=== PATIENT | female | born 1940 | race Two or more races ===

== ENCOUNTER 2020-10-25 11:41 | Inpatient (IN) | payer MEDICARE, OTHER ==
[2020-10-25] VITALS: BP 107/81
[~2020-10-25] VITALS: Ht 157.5 cm; Wt 85.3 kg
--- NOTE | 2020-10-25 11:48 | NUR ---
BIB RA 100 FROM HOME, FOUND BY DAUGHTER,WEAK,UNABLE TO GET UPT FROM BED BLOOD SUGAR ABOVE 500 UPON EMS ARRIVAL, TO ER BED 7, HOOKED TO SOLUTION SALES SENIOR EXECUTIVE, BP CUFF AND POX. PATIENT ON NRB AT 15LPM O2, O2 SATURATION AT 92%. 77% RA. CHANGED TO HOSP GOWN, WARM BLANKET PROVIDED, PATIENT AAO x 3, DR AGEE AT BEDSIDE
[2020-10-25] MEDS ORDERED: BENA40TA8 PO (12:07)
[2020-10-25] MEDS ORDERED: HYDR25TA4 PO (12:07)
[2020-10-25] MEDS ORDERED: METF-440 PO (12:07)
[2020-10-25] MEDS ORDERED: ATOR40TA PO (12:07)
[2020-10-25] MEDS ORDERED: ASPI-1498 PO (12:07)
[2020-10-25 12:10] LABS: BASOPHILS % (AUTO) 0.6 % (0.0-2.0); EOSINOPHILS % (AUTO) 0.1 % (0.0-6.0); HEMATOCRIT 41 % (33-45); HEMOGLOBIN 13.1 g/dL (11.5-14.8); LYMPHOCYTES # (AUTO) 0.5 /CMM (0.8-4.8); LYMPHOCYTES % (AUTO) 6.6 % (20.0-44.0); MEAN CORPUSCULAR HGB CONC 32 g/dl (31.0-36.0); MEAN CORPUSCULAR VOLUME 97 fL (82-100); MONOCYTES # (AUTO) 0.4 /CMM (0.1-1.30); MONOCYTES % (AUTO) 5.1 % (2.0-12.0); NEUTROPHILS # (AUTO) 6.4 /CMM (1.8-8.9); NEUTROPHILS % (AUTO) 87.6 % (43.0-81.0); PLATELET COUNT (AUTO) 207 /CMM (150-450); RED BLOOD CELL COUNT(AUTO) 4.21 MIL/uL (4.0-5.2); WHITE BLOOD COUNT (AUTO) 7.3 K/uL (4.3-11.0)
[2020-10-25 12:47] LABS: ALANINE AMINOTRANSFERASE 42 U/L (12-78); ALBUMIN 3.1 g/dL (3.4-5.0); ALKALINE PHOSPHATASE 140 U/L (46-116); ASPARTATE AMINOTRANSFERASE 112 U/L (15-37); BILIRUBIN,DIRECT 0.3 mg/dL (0.0-0.2); BILIRUBIN,TOTAL 0.6 mg/dL (0.2-1.0); CARBON DIOXIDE 19 mmol/L (21-32); CHLORIDE 96 mmol/L (98-107); CREATININE 1.6 mg/dL (0.6-1.3); SODIUM SERUM 134 mmol/L (136-145); TOTAL PROTEIN, SERUM 7.9 g/dL (6.4-8.2)
[2020-10-25 12:51] LABS: GLUCOSE 533 mg/dL (74-106)
--- NOTE | 2020-10-25 12:58 | NUR ---
patient unable to provide urine sample at this time. made aware
[2020-10-25] MEDS ORDERED: IV PREMIX NS +20MEQ KCL 1,000 L IV PRN (13:00)
[2020-10-25] MEDS ORDERED: INSULIN REGULAR, HUMAN 100 UNIT in IV NS 0.9% 99 ML IV ONE ×2 (13:00)
[2020-10-25 13:07] LABS: UREA NITROGEN, BLOOD 35 mg/dL (7-18)
--- NOTE | 2020-10-25 13:15 | NUR ---
MOVE SHEET SUBMITTED AND CALLED FOR TELE
[2020-10-25] MEDS ORDERED: ASPIRIN 325 MG TABLET PO ONE (13:30)
[2020-10-25] MEDS ORDERED: CEFTRIAXONE 1GM BAG (ER ONLY) 1 GM/50 ML PIGGYBACK IV ONE (13:30)
[2020-10-25 13:47] LABS: BILIRUBIN,URINE Negative (NEGATIVE); COLOR,URINE YELLOW (YELLOW); LEUKOCYTE ESTERASE ,URINE Negative (NEGATIVE); NITRITE, URINE Negative (NEGATIVE); PROTEIN,URINE 30 mg/dl (NEGATIVE); UGLUCOSE >=1000 mg/dL (NEGATIVE)
[2020-10-25] MEDS ORDERED: CEFTRIAXONE 1GM BAG (ER ONLY) 50 ML IV ONE (13:57)
[2020-10-25] MEDS ORDERED: ASPIRIN 325 MG TABLET ONE (13:57)
[2020-10-25 13:58] LABS: RBC,URINE 0-2 /HPF (0-2); WBC,URINE 0-2 /HPF (0-3)
[2020-10-25 14:02] LABS: BACTERIA,URINE Few /HPF (None Seen); SQUAMOUS EPITHELIAL CELL,UR 0-2 /HPF (None Seen)
--- NOTE | 2020-10-25 14:43 | NUR ---
RAPID COVID SWAB DONE AND PCR SENT TO LAB.
[2020-10-25] MEDS ORDERED: HYDROCODONE/APAP 5/325MG TABLET PO PRN (15:00)
[2020-10-25] MEDS ORDERED: ONDANSETRON HCL/PF 4 MG/2 ML VIAL IVP PRN (15:00)
[2020-10-25] MEDS ORDERED: Z GUARD REMEDY 2 OZ OINT TP PRN (15:00)
[2020-10-25] MEDS ORDERED: ACETAMINOPHEN 325 MG TABLET PO PRN (15:00)
[2020-10-25] MEDS ORDERED: MAGNESIUM HYDROXIDE 30 ML UDC PO PRN (15:00)
[2020-10-25] MEDS ORDERED: INSULIN REGULAR, HUMAN 100 UNIT in IV NS 0.9% 99 ML IV PRN ×2 (15:00)
[2020-10-25] MEDS ORDERED: MAG HYDROX/AL HYDROX/SIMETH 30 ML UDC PO PRN (15:00)
[2020-10-25] MEDS: AZITHROMYCIN 500 MG in IV D5W 250 ML IV SCH (17:00)
[2020-10-25] MEDS ORDERED: DEXAMETHASONE SOD PHOSPHATE 10 MG/ML VIAL IV ONE (19:00)
--- NOTE | 2020-10-25 19:30 | NUR ---
ENDORSEMENT GIVEN TO LUCIA MEDEL RN FOR DIMITRIOS
--- NOTE | 2020-10-25 19:30 | NUR ---
REC'D REPORT FROM ABEBE KWON. PT RESTING COMFORTABLY IN BED. AAOX3, CAMBODIAN SPEAKING. O2 SAT 83% ON 15L NONREBREATHER. STILL ON CONTINOUS STOCK PLAN ADMINISTRATOR AND PULSE OX. WILL CONTINUE TO MONITOR
[2020-10-25] MEDS ORDERED: DEXAMETHASONE SOD PHOSPHATE 10 MG/ML VIAL ONE (19:36)
[2020-10-25 20:29] LABS: CREATININE, URINE 133.9 MG/DL (30.0-125.0); URINE TOTAL PROTEIN 60.7 mg/dL (0-11.9)
--- NOTE | 2020-10-25 20:50 | NUR ---
RT AT BEDSIDE
[2020-10-25] MEDS ORDERED: POTASSIUM CL. PREMIX PERIPHER. 50 ML IV PRN ×2 (21:00)
[2020-10-25] MEDS ORDERED: ENOXAPARIN SODIUM 40 MG/0.4 ML DISP.SYRIN SQ SCH (21:00)
--- NOTE | 2020-10-25 21:06 | NUR ---
LAB CALLED REGARDING INVESTIGATIVE PAPERWORK FOR CONVALESCENT PLASMA TRANSFUSION.
--- NOTE | 2020-10-25 21:16 | NUR ---
Amaya jonas in [facility] - 10/25/20 at 2205 by QUIQUE REPORT GIVEN TO ABEBE BROWNLEE FOR DIMITRIOS
--- NOTE | 2020-10-25 21:16 | NUR ---
REPORT GIVEN TO ABEBE BROWNLEE FOR DIMITRIOS
[2020-10-25 22:00] VITALS: BP 115/79
--- NOTE | 2020-10-25 22:00 | NUR ---
RECEIVED PATIENT FROM SUPERVISOR CASE LOADING. PATIENT SHOWING NO SIGNS OF ANY DISTRESS. ALERT X3. PATIENT ON NRB WITH 15L SATURATING AT 85%. PATIENT HAS ALMANZA IN PLACE. RAC AND LAC #18 BOTH PATENT AND FLUSHING. ON THE MONITOR SHOWING SINUS WITH HR OF 75. BP WNL.
--- NOTE | 2020-10-25 22:04 | NUR ---
PT TRANSFERRED TO ICU PER ACLS PROTOCOL
--- NOTE | 2020-10-25 22:04 | NUR ---
Amaya jonas in ED - 10/25/20 at 2213 by KELLEY PT TRANSFERRED TO ICU 252 PER ACLS PROTOCOL IN STABLE CONDITION
[2020-10-25 22:39] LABS: CALCIUM, SERUM 8.7 mg/dL (8.5-10.1); CARBON DIOXIDE 25 mmol/L (21-32); CHLORIDE 105 mmol/L (98-107); CREATININE 1.1 mg/dL (0.6-1.3); GLUCOSE 250 mg/dL (74-106); POTASSIUM 3.9 mmol/L (3.5-5.1); SODIUM SERUM 141 mmol/L (136-145); UREA NITROGEN, BLOOD 29 mg/dL (7-18)
[2020-10-25 22:40] LABS: ABG BASE EXCESS -5.1 mmol/L; ABG OXYGEN SATURATION 88.4 % (92.0-98.5); ABG PCO2 32.2 mmHg (35.0-45.0); ABG PH 7.388 (7.350-7.450); ABG PO2 55.3 mmHg (75.0-100.0); AaDO2 625.5 mmHg; COHb 1.1 % (0.5-1.5); MetHb 0.3 % (0.0-1.5); O2Hb 87.2 % (94.0-97.0); SITE, ABG Left Radial; VENT MODE, BG 5 LNC + 15 LNRB
[2020-10-25] MEDS: IV D5/0.45 NACL 1,000 ML IV PRN ×2 (22:42→23:00)
[2020-10-25 23:00] VITALS: BP 127/65
[2020-10-25] MEDS: BLOOD SUGAR DIAGNOSTIC 1 EACH STRIP IN SCH (23:06)
[2020-10-26] VITALS (24 sets, daily range): BP systolic 93–153; BP diastolic 37–85
--- NOTE | 2020-10-26 00:15 | NUR ---
ROBERTO DRAWN, INFORMED HEALTHCARE SCIENCE SPECIALIST OF RESULTS WITH NO ORDERS GIVEN,
[2020-10-26] MEDS: BLOOD SUGAR DIAGNOSTIC 1 EACH STRIP IN SCH ×10 (00:37→21:06)
--- NOTE | 2020-10-26 03:30 | NUR ---
PATIENT CONTINUE TO SATURATE IN THE LOW 80%'S. ORDER FROM DIRECTOR PRODUCT SAFETY MD TO START PATIENT ON HIGH FLOW.
[2020-10-26 04:50] LABS: CALCIUM, SERUM 8.6 mg/dL (8.5-10.1); CARBON DIOXIDE 26 mmol/L (21-32); CHLORIDE 105 mmol/L (98-107); CREATININE 0.8 mg/dL (0.6-1.3); GLUCOSE 168 mg/dL (74-106); SODIUM SERUM 139 mmol/L (136-145); UREA NITROGEN, BLOOD 24 mg/dL (7-18)
[2020-10-26 04:58] LABS: CREATINE KINASE, TOTAL 377 U/L (26-192)
[2020-10-26 05:04] LABS: ALANINE AMINOTRANSFERASE 53 U/L (12-78); ALBUMIN 2.9 g/dL (3.4-5.0); ALKALINE PHOSPHATASE 142 U/L (46-116); ASPARTATE AMINOTRANSFERASE 142 U/L (15-37); B-TYPE NATRIURETIC PEPTIDE 4734 PG/ML (0-125); BILIRUBIN,TOTAL 0.3 mg/dL (0.2-1.0); MAGNESIUM 2.1 mg/dL (1.8-2.4); PHOSPHORUS 1.6 mg/dL (2.5-4.9); TOTAL PROTEIN, SERUM 7.5 g/dL (6.4-8.2)
[2020-10-26] MEDS ORDERED: DEXTROSE 50%-WATER 50 ML DISP.SYRIN IV PRN (05:30)
[2020-10-26 06:59] LABS: FERRITIN 1928 ng/mL (8-388)
--- NOTE | 2020-10-26 07:49 | NUR ---
horticultural nursery assistant note patient in bed alert oriented on high flow of o2 and nonrebreather mask ,saturation 87% on tele monitor sr hr 74 , with Gupta cath to gravity with yellow color urine, lac AND RT AC HL INTACT ON IVF ORDERED RT AT BEDSIDE , BED IN LOWER AND LOCKED POSITION PATIENT IS VERY RESTLESS AND TRYING TO REMOVE ALL LINE AND O2 AT RISK FOR DESATURATION DR MAKI NOTIFIED TO PLACE SOFT RESTRAIN , WILL MONITOR
--- NOTE | 2020-10-26 08:01 | NUR ---
WOUND CARE CONSULT: REVIEWED CHART AND NURSING DOCUMENTATION, SPOKE WITH RN. PT IS VERY RESTLESS PER NURSING STAFF. RECOMMENDATIONS MADE FOR SKIN PROTECTION. DISCUSSED WITH NURSING STAFF. PT IS ON MIGUEL ISOFLEX LOW AIRLOSS BED. MD IN AGREEMENT WITH PLAN OF CARE.
[2020-10-26] MEDS ORDERED: D5 IV ONE (08:19)
[2020-10-26] MEDS ORDERED: [UNRECOGNIZED DRUG - OTHER] IV ONE (08:19)
[2020-10-26] MEDS ORDERED: KCL IV ONE (08:19)
[2020-10-26] MEDS: DEXAMETHASONE SOD PHOSPHATE 10 MG/ML VIAL IV SCH (08:46)
[2020-10-26] MEDS: ASPIRIN EC 81 MG TABLET.DR PO SCH (08:46)
[2020-10-26] MEDS: ATORVASTATIN 40 MG TABLET PO SCH (08:46)
[2020-10-26] MEDS: IV D5/0.45 NACL 1,000 ML IV PRN (08:47)
[2020-10-26] MEDS: INSULIN REGULAR, HUMAN 100 UNIT/ML 3 ML VIAL SQ PRN ×4 (09:03→21:07)
[2020-10-26 09:25] LABS: ABG BASE EXCESS -5.4 mmol/L; ABG OXYGEN SATURATION 81.4 % (92.0-98.5); ABG PCO2 34.5 mmHg (35.0-45.0); ABG PH 7.364 (7.350-7.450); ABG PO2 46.2 mmHg (75.0-100.0); AaDO2 632.3 mmHg; COHb 0.6 % (0.5-1.5); MetHb 0.3 % (0.0-1.5); O2Hb 80.7 % (94.0-97.0); SITE, ABG Right Radial; VENT MODE, BG HFNC 60L 100% +NRB
[2020-10-26] MEDS: ENOXAPARIN SODIUM 80 MG/0.8 ML DISP.SYRIN SQ SCH ×2 (09:39→21:10)
[2020-10-26 10:12] LABS: CALCIUM, SERUM 8.5 mg/dL (8.5-10.1); CREATININE 0.8 mg/dL (0.6-1.3); POTASSIUM 4.1 mmol/L (3.5-5.1)
--- NOTE | 2020-10-26 10:21 | NUR ---
arboriculturist note dr mac at bedside aware that o2 saturation 85-87%, keep above 84 encouraged to stay on side,will cont to monitor, chest x ray done Addendum: 10/26/20 at 1023 by NIKIA BOGGS RN abg done dr mac aware of result
[2020-10-26] MEDS: IV NS 0.9% 1,000 ML IV PRN (10:42)
--- NOTE | 2020-10-26 10:44 | NUR ---
SUPERVISOR STRIPPING NOTE PER DR ANSLEY JOHN OK TO STOP D51\2 NS AND START NS AT 125 ML PER HOUR BLOOD SUGAR 339 MG\DL
[2020-10-26] MEDS ORDERED: Sodium Phosphate 15 MMOL in IV NS 0.9% 245 ML IV SCH (11:00)
[2020-10-26 11:13] LABS: BASOPHILS % (AUTO) 0.2 % (0.0-2.0); EOSINOPHILS % (AUTO) 0.5 % (0.0-6.0); HEMATOCRIT 39 % (33-45); HEMOGLOBIN 12.8 g/dL (11.5-14.8); LYMPHOCYTES # (AUTO) 0.7 /CMM (0.8-4.8); LYMPHOCYTES % (AUTO) 6.1 % (20.0-44.0); MEAN CORPUSCULAR HGB CONC 33 g/dl (31.0-36.0); MEAN CORPUSCULAR VOLUME 93 fL (82-100); MONOCYTES # (AUTO) 0.3 /CMM (0.1-1.30); MONOCYTES % (AUTO) 3.1 % (2.0-12.0); NEUTROPHILS # (AUTO) 9.7 /CMM (1.8-8.9); NEUTROPHILS % (AUTO) 90.1 % (43.0-81.0); PLATELET COUNT (AUTO) 207 /CMM (150-450); RED BLOOD CELL COUNT(AUTO) 4.21 MIL/uL (4.0-5.2); WHITE BLOOD COUNT (AUTO) 10.7 K/uL (4.3-11.0)
[2020-10-26] MEDS: CEFTRIAXONE 1 G in IV D5W 50 ML IV SCH (13:55)
--- NOTE | 2020-10-26 15:28 | NUR ---
GERIATRIC NURSE PRACTITIONER NOTE CONVALESCED PLASMA START TO TRANSFUSED ORDERED PER DR CORTEZ ONLY ONE INIT, WILL F\U, MID LINE INSERTED ORDERED ON RT UPPER ARM
[2020-10-26] MEDS: AZITHROMYCIN 500 MG in IV D5W 250 ML IV SCH (16:43)
[2020-10-26 16:49] LABS: CALCIUM, SERUM 8.5 mg/dL (8.5-10.1); CREATININE 0.8 mg/dL (0.6-1.3); POTASSIUM 3.7 mmol/L (3.5-5.1)
[2020-10-26] MEDS ORDERED: REMDESIVIR (CHARGED) 200 MG, *LOADING DOSE 1 EA in IV NS 0.9% 210 ML IV ONE (18:00)
--- NOTE | 2020-10-26 18:13 | NUR ---
ARMAMENT REPAIRER NOTE ON HIGH FLOW OF O2 AND NONREABRETHER MASK ,SATURATION 88-90% DR CORTEZ AWARE OF SATURATION
--- NOTE | 2020-10-26 20:00 | NUR ---
TRUCK WASHER NOTES PATIENT NOTED TO REMOVE NRM DESPITE FREQUENT PATIENT TEACHING TO KEEP MASK ON. PATIENT WENT INTO DISTRESS, HR UP TO 160s, DESAT TO 70s. NRM IMMEDIATELY PLACED BACK ON PATIENT, REPOSITIONED FOR COMFORT, HR NOTED TO DROP BACK DOWN TO 80s, SINUS RHYTHM. WILL CONTINUE TO MONITOR PATIENT
[2020-10-26] MEDS ORDERED: INSULIN REGULAR, HUMAN 100 UNIT/ML 3 ML VIAL SQ ONE (21:00)
[2020-10-26] MEDS ORDERED: TOCILIZUMAB 400 MG in IV NS 0.9% 80 ML IV ONE (21:00)
--- NOTE | 2020-10-26 21:00 | NUR ---
ASSEMBLER AND TESTER ELECTRONICS NOTES BLOOD SUGAR 429. PER INSULIN SLIDING SCALE, 10 UNITS INSULIN SQ AND NOTIFY MD. NICO KEVIN COLOR REPAIRER NOTIFIED, WITH ORDER TO GIVE ADDITIONAL 5 UNITS INSULIN SQ, TOTAL OF 15UNITS FOR BLOOD SUGAR 429
[2020-10-27] VITALS (24 sets, daily range): BP systolic 68–162; BP diastolic 35–88
[2020-10-27] MEDS: IV NS 0.9% 1,000 ML IV PRN (02:37)
[2020-10-27] MEDS: BLOOD SUGAR DIAGNOSTIC 1 EACH STRIP IN SCH ×6 (02:38→21:57)
[2020-10-27] MEDS: INSULIN REGULAR, HUMAN 100 UNIT/ML 3 ML VIAL SQ PRN ×6 (02:50→21:56)
[2020-10-27 04:33] LABS: BASOPHILS % (AUTO) 0.1 % (0.0-2.0); HEMATOCRIT 36 % (33-45); HEMOGLOBIN 11.5 g/dL (11.5-14.8); LYMPHOCYTES # (AUTO) 0.7 /CMM (0.8-4.8); LYMPHOCYTES % (AUTO) 6.6 % (20.0-44.0); MEAN CORPUSCULAR HGB CONC 32 g/dl (31.0-36.0); MEAN CORPUSCULAR VOLUME 93 fL (82-100); MONOCYTES # (AUTO) 0.6 /CMM (0.1-1.30); MONOCYTES % (AUTO) 5.2 % (2.0-12.0); NEUTROPHILS # (AUTO) 9.9 /CMM (1.8-8.9); NEUTROPHILS % (AUTO) 88.1 % (43.0-81.0); PLATELET COUNT (AUTO) 249 /CMM (150-450); RED BLOOD CELL COUNT(AUTO) 3.83 MIL/uL (4.0-5.2); WHITE BLOOD COUNT (AUTO) 11.2 K/uL (4.3-11.0)
[2020-10-27 04:45] LABS: ALBUMIN 2.8 g/dL (3.4-5.0); BILIRUBIN,DIRECT 0.2 mg/dL (0.0-0.2); BILIRUBIN,TOTAL 0.4 mg/dL (0.2-1.0); CALCIUM, SERUM 8.5 mg/dL (8.5-10.1); CREATININE 0.8 mg/dL (0.6-1.3); MAGNESIUM 1.9 mg/dL (1.8-2.4); PHOSPHORUS 1.8 mg/dL (2.5-4.9); TOTAL PROTEIN, SERUM 7.3 g/dL (6.4-8.2)
--- NOTE | 2020-10-27 06:00 | NUR ---
PRE CODER NOTES PATIENT KEPT COMFORTABLE DURING SHIFT ,MINIMAL EPISODES OF DESATURATION. TAPE EFFECTIVE IN KEEPING NRM ON PATIENT'S FACE
--- NOTE | 2020-10-27 07:30 | NUR ---
RN OPENING NOTE Received patient In bed, A/Ox4, on non-rebreather and high flow mask, on max settings, tolerating well, SPO2 is 88-94%. Encouraging to breath calm and relaxed, denies pain, skin is intact, ambulatory in general. Tele-monitor is SR 75-80, cardiac diet noted, Left and Right AC IV line present, intact and patent, R UA midline present. Patient is isolated for COVID-19. Safety measures in place, bed is locked, in lowest position, HOB elevated, will cont to monitor closely
[2020-10-27 08:10] LABS: PTH, INTACT 74 pg/mL (15-65)
--- NOTE | 2020-10-27 08:30 | NUR ---
Gupta cath draining Bright red urine by gravity, will inform hospitalist
[2020-10-27] MEDS: ENOXAPARIN SODIUM 80 MG/0.8 ML DISP.SYRIN SQ SCH ×2 (09:00→21:55)
[2020-10-27] MEDS: ASPIRIN EC 81 MG TABLET.DR PO SCH (09:00)
[2020-10-27] MEDS: ATORVASTATIN 40 MG TABLET PO SCH (09:04)
[2020-10-27] MEDS: DEXAMETHASONE SOD PHOSPHATE 10 MG/ML VIAL IV SCH (09:04)
[2020-10-27] MEDS: FUROSEMIDE 40 MG/4 ML VIAL IV SCH ×3 (10:26→16:35)
[2020-10-27] MEDS: K PHOS NEUTRAL 250 MG TABLET PO SCH ×2 (13:00→16:35)
--- NOTE | 2020-10-27 14:00 | NUR ---
provided bed bath for patient, gerri mosley
[2020-10-27] MEDS: CEFTRIAXONE 1 G in IV D5W 50 ML IV SCH (15:30)
[2020-10-27] MEDS: AZITHROMYCIN 500 MG in IV D5W 250 ML IV SCH (16:05)
[2020-10-27 16:07] LABS: *SPE A/G RATIO 0.7 (0.7-1.7); *SPE ALBUMIN 2.9 g/dL (2.9-4.4); *SPE ALPHA-1-GLOBULIN 0.4 g/dL (0.0-0.4); *SPE ALPHA-2-GLOBULIN 1.1 g/dL (0.4-1.0); *SPE GLOBULIN, TOTAL 3.9 g/dL (2.2-3.9); *SPE M-SPIKE Not Observed g/dL (Not Observed); *SPEGAMMA GLOBULIN 1.4 g/dL (0.4-1.8)
[2020-10-27] MEDS: REMDESIVIR (CHARGED) 100 MG in IV NS 0.9% 230 ML IV SCH (18:02)
[2020-10-27 18:35] LABS: URINE SODIUM, RANDOM 141 mmol/l (40-220); URINE TOTAL PROTEIN 11.4 mg/dL (0-11.9)
[2020-10-27 18:44] LABS: BILIRUBIN,URINE NEGATIVE (NEGATIVE); COLOR,URINE YELLOW (YELLOW); LEUKOCYTE ESTERASE ,URINE NEGATIVE (NEGATIVE); NITRITE, URINE NEGATIVE (NEGATIVE); PROTEIN,URINE NEGATIVE (NEGATIVE); UGLUCOSE NEGATIVE (NEGATIVE); UROBILINOGEN,URINE 0.2 EU/dL (0.2)
[2020-10-27 18:50] LABS: CREATININE, URINE < 5.0 MG/DL (30.0-125.0)
[2020-10-27 18:52] LABS: BACTERIA,URINE Few /HPF (None Seen); EOSINOPHIL,URINE None Seen; RBC,URINE 21-50 /HPF (0-2); SQUAMOUS EPITHELIAL CELL,UR Few /HPF (None Seen); WBC,URINE 0-2 /HPF (0-3)
--- NOTE | 2020-10-27 19:22 | NUR ---
Rn closing notes Patient remains in bed, tolerating settings well, no acute distress or complain on pain during shift comfort needs provided, medications given, safety measures implemented, bed in lowest position, HOB elevated, call light in reach, will endorse to PM shift RN for DIMITRIOS
--- NOTE | 2020-10-27 19:30 | NUR ---
REPORT CLERK INITIAL NOTES RECEIVED PATIENT IN BED, AWAKE, A/O X3, IRAQI SPEAKING, ABLE TO VERBALIZE NEEDS. SR ON MONITOR. ON HI FLOW NC 60L 100% SPO2, SPO2 MID 80s. ALMANZA PATENT AND INTACT, DRAINING PINK URINE VIA GRAVITY. CORINNE MIDLINE PATENT AND INTACT, NS @ TKO BED IN LOWEST NAD LOCKED POSITION, ISOLATION PRECAUTIONS FOR COVID-19 OBSERVED. WILL MONITOR
--- NOTE | 2020-10-27 21:30 | NUR ---
*late entry TECHNICIAN TELECOMMUNICATION SYSTEMS NOTES RN ASSISTED PATIENT WITH VIDEOCHAT CALL WITH PATIENT'S DAUGHTER KWADWO, QUESTIONS ANSWERED ABLE.
--- NOTE | 2020-10-27 22:00 | NUR ---
TRUCKER HAND NOTES PATIENT NOTED WITH BM, LOOSE, LEMONS/BLACK IN COLOR. TOLERATED BED BATH WELL
[2020-10-28] VITALS (37 sets, daily range): BP systolic 62–172; BP diastolic 41–89
[2020-10-28] MEDS: BLOOD SUGAR DIAGNOSTIC 1 EACH STRIP IN SCH ×6 (00:54→20:58)
[2020-10-28] MEDS: INSULIN REGULAR, HUMAN 100 UNIT/ML 3 ML VIAL SQ PRN ×6 (00:56→21:02)
[2020-10-28 04:44] LABS: BASOPHILS % (AUTO) 0.1 % (0.0-2.0); EOSINOPHILS % (AUTO) 0.1 % (0.0-6.0); HEMATOCRIT 37 % (33-45); LYMPHOCYTES # (AUTO) 0.5 /CMM (0.8-4.8); LYMPHOCYTES % (AUTO) 5.4 % (20.0-44.0); MEAN CORPUSCULAR HGB CONC 33 g/dl (31.0-36.0); MEAN CORPUSCULAR VOLUME 93 fL (82-100); MONOCYTES # (AUTO) 0.6 /CMM (0.1-1.30); MONOCYTES % (AUTO) 5.9 % (2.0-12.0); NEUTROPHILS # (AUTO) 8.7 /CMM (1.8-8.9); NEUTROPHILS % (AUTO) 88.5 % (43.0-81.0); PLATELET COUNT (AUTO) 256 /CMM (150-450); RED BLOOD CELL COUNT(AUTO) 3.95 MIL/uL (4.0-5.2); WHITE BLOOD COUNT (AUTO) 9.9 K/uL (4.3-11.0)
[2020-10-28 04:56] LABS: ALANINE AMINOTRANSFERASE 61 U/L (12-78); ALBUMIN 2.8 g/dL (3.4-5.0); ALKALINE PHOSPHATASE 196 U/L (46-116); ASPARTATE AMINOTRANSFERASE 105 U/L (15-37); BILIRUBIN,TOTAL 0.5 mg/dL (0.2-1.0); CALCIUM, SERUM 8.4 mg/dL (8.5-10.1); CARBON DIOXIDE 30 mmol/L (21-32); CHLORIDE 105 mmol/L (98-107); CREATININE 0.9 mg/dL (0.6-1.3); GLUCOSE 192 mg/dL (74-106); MAGNESIUM 1.4 mg/dL (1.8-2.4); PHOSPHORUS 2.8 mg/dL (2.5-4.9); POTASSIUM 2.9 mmol/L (3.5-5.1); SODIUM SERUM 145 mmol/L (136-145); TOTAL PROTEIN, SERUM 7.1 g/dL (6.4-8.2); UREA NITROGEN, BLOOD 20 mg/dL (7-18)
--- NOTE | 2020-10-28 07:30 | NUR ---
RN OPENING NOTES RECEIVED PATIENT IN BED, AWAKE, A/O X3, CROATIAN SPEAKING, ABLE TO VERBALIZE NEEDS. SR ON MONITOR. ON HI FLOW NC 60L 100% SPO2, SPO2 MID 80s. ALMANZA PATENT AND INTACT, URINE VIA GRAVITY. CORINNE MIDLINE PATENT AND INTACT, NS @ TKO .SAFETY MEASUREMENTS ARE IMPLEMENTED PER HOSPITAL PROTOCOL. BED IN LOWEST,LOCKED POSITION, AND RAILS ARE UP X2. ISOLATION PRECAUTIONS FOR COVID-19 OBSERVED. WILL CONTUNIE TO MONITOR
[2020-10-28] MEDS: Magnesium 1GM/D5W 100ML PREMIX 100 ML IV SCH ×2 (07:51→08:21)
[2020-10-28] MEDS: POTASSIUM CHLORIDE 20 MEQ TAB.PRT.SR PO SCH ×5 (07:51→11:11)
[2020-10-28] MEDS: DEXAMETHASONE SOD PHOSPHATE 10 MG/ML VIAL IV SCH (08:22)
[2020-10-28] MEDS: ASPIRIN EC 81 MG TABLET.DR PO SCH (08:23)
[2020-10-28] MEDS: ATORVASTATIN 40 MG TABLET PO SCH (08:23)
[2020-10-28] MEDS: ENOXAPARIN SODIUM 80 MG/0.8 ML DISP.SYRIN SQ SCH ×2 (08:28→21:02)
[2020-10-28 10:55] LABS: ABG BASE EXCESS 4.3 mmol/L; ABG OXYGEN SATURATION 78.7 % (92.0-98.5); ABG PCO2 40.9 mmHg (35.0-45.0); ABG PH 7.461 (7.350-7.450); ABG PO2 41.9 mmHg (75.0-100.0); AaDO2 630.2 mmHg; COHb 0.7 % (0.5-1.5); MetHb 0.3 % (0.0-1.5); O2Hb 77.9 % (94.0-97.0); SITE, ABG Right Radial; VENT MODE, BG HIGH FLOW 60 L / 100% FIO
--- NOTE | 2020-10-28 12:25 | NUR ---
PT INTUBATED BY ANESTHESIOLOGIST PER DR. CORTEZ DUE TO LOW PAO2 AND INCREASED WORK OF BREATHING. INTUBATED WITH 7.5 ET TUBE SECURED @ 23 CM CENTER OF THE LIPS. CO2 DETECTOR CHANGED TO YELLOW COLOR WITH CLEAR BREATH SOUNDS BILATERAL ON POST INTUBATION. VENT SETTINGS BELOW ORDER: AC 24 VT 450 ML FIO2 100% PEEP +5 VENT PLUGGED INTO RED OUTLET WITH ALARMS ON AND FUNCTIONING. THOMASUBAG @ BEDSIDE. Addendum: 10/28/20 at 1242 by SANAZ PHILLIPS RT Amended: Links added.
--- NOTE | 2020-10-28 12:25 | NUR ---
RN NOTES PT GOT INTUBATED
--- NOTE | 2020-10-28 12:30 | NUR ---
RN NOTES PT INTUBATED BY ANESTHESIOLOGIST PER DR. CORTEZ DUE TO LOW PAO2 AND INCREASED WORK OF BREATHING. INTUBATED WITH 7.5 ET TUBE SECURED @ 23 CM CENTER OF THE LIPS. CO2 DETECTOR CHANGED TO YELLOW COLOR WITH CLEAR BREATH SOUNDS BILATERAL ON POST INTUBATION. VENT SETTINGS BELOW ORDER: AC 24
--- NOTE | 2020-10-28 12:35 | NUR ---
RN NOTES ORDER STAT X RAY FOR TUBE LOC
--- NOTE | 2020-10-28 12:45 | NUR ---
RN NOTES CHESR X RAY TOO DEEP INTUBATION PULLED OUT 3 CM NOW LIP IS 20CM
[2020-10-28] MEDS: FUROSEMIDE 40 MG/4 ML VIAL IV SCH ×3 (12:46→20:29)
--- NOTE | 2020-10-28 12:52 | NUR ---
RN NOTES STARTTED PROPOFOL AT 5 MCG/HR AND PUT MITTENTS RESTRAINS DUE TO INTUBATION
--- NOTE | 2020-10-28 13:11 | NUR ---
et tube adjusted from 23 cm to 20 cm beckie (pulled out) per dr. mac. Addendum: 10/28/20 at 1312 by SANAZ PHILLIPS RT Amended: Links added.
--- NOTE | 2020-10-28 13:34 | NUR ---
RN NOTES DR LILLY STATED THE TUBE IS IN PLACE
[2020-10-28] MEDS: CEFTRIAXONE 1 G in IV D5W 50 ML IV SCH (14:50)
[2020-10-28 15:23] LABS: ABG BASE EXCESS 1.2 mmol/L; ABG OXYGEN SATURATION 81.5 % (92.0-98.5); ABG PH 7.402 (7.350-7.450); ABG PO2 47.1 mmHg (75.0-100.0); AaDO2 622.9 mmHg; COHb 0.5 % (0.5-1.5); MetHb 0.1 % (0.0-1.5); PEEP,BG 5 cm H2O; SITE, ABG Right Radial; VT, ABG 450 mL
--- NOTE | 2020-10-28 15:29 | NUR ---
+[address] mac Addendum: 10/28/20 at 1530 by SANAZ PHILLIPS RT Amended: Links added.
--- NOTE | 2020-10-28 15:30 | NUR ---
RN NOTES PEEP CHANGED FROM 5 TO 10
[2020-10-28] MEDS: PROPOFOL 100 ML IV PRN ×2 (16:17→22:37)
[2020-10-28] MEDS: AZITHROMYCIN 500 MG in IV D5W 250 ML IV SCH (16:19)
[2020-10-28] MEDS: REMDESIVIR (CHARGED) 100 MG in IV NS 0.9% 230 ML IV SCH (18:21)
--- NOTE | 2020-10-28 18:33 | NUR ---
RN CLOSING NOTES PATIENT IN BED, INTUBATED TODAY WITH AC 24 TV 450 SPO2 OF 100 ANDD PEEP OF 10 .PROPOFOL IS RUNNING AT 30 .ALMANZA PATENT AND INTACT, URINE VIA GRAVITY. CORINNE MIDLINE PATENT AND INTACT, NS @ TKO .SAFETY MEASUREMENTS ARE IMPLEMENTED PER HOSPITAL PROTOCOL. BED IN LOWEST,LOCKED POSITION, AND RAILS ARE UP X2. ISOLATION PRECAUTIONS FOR COVID-19 OBSERVED. WILL ENDORSE TO PM NURSE FOR DIMITRIOS
--- NOTE | 2020-10-28 19:45 | NUR ---
VENDOR SPECIALIST NOTES RN SPOKE TO PATIENT'S DAUGHTER KWADWO, UPDATED THAT THE PATIENT WAS INTUBATED EARLIER THIS AFTERNOON. PER FAMILY MEMBERS. THIS IS THE FIRST TIME ANY STAFF HAS GIVEN AN UPDATE. RN ANSWERED QUESTIONS ABLE. FAMILY MEMBERS REQUESTING TO CALL WITH ANY UPDATES. WILL MONITOR PATIENT CLSOELY
[2020-10-29] VITALS (39 sets, daily range): BP systolic 84–121; BP diastolic 50–67
[2020-10-29] MEDS: BLOOD SUGAR DIAGNOSTIC 1 EACH STRIP IN SCH ×6 (01:14→21:16)
[2020-10-29] MEDS: INSULIN REGULAR, HUMAN 100 UNIT/ML 3 ML VIAL SQ PRN ×6 (01:29→21:15)
--- NOTE | 2020-10-29 04:03 | NUR ---
RT NOTE PT REC'D ORALLY INTUBATED VIA ETT SZ 7.5 SECURED AT 20 CM AT THE LIPLINE. PT ON [facility] VENT ON NOTED SETTINGS CHARTED. PT SX'D FOR SMALL AMT OF PALE YELLOW SECRETIONS. SECRETIONS. ALARMS ARE SET AND AUDIBLE. AMBU BAG BEDSIDE. VENT PLUGGED INTO RED OUTLET. WILL CONTINUE TO MONITOR CLOSELY. Addendum: 10/29/20 at 0404 by JOSHUA NIXON RT Amended: Links added.
[2020-10-29] MEDS: PROPOFOL 100 ML IV PRN ×4 (05:36→21:17)
[2020-10-29 05:46] LABS: BASOPHILS % (AUTO) 0.1 % (0.0-2.0); EOSINOPHILS % (AUTO) 0.1 % (0.0-6.0); HEMATOCRIT 38 % (33-45); HEMOGLOBIN 12.5 g/dL (11.5-14.8); LYMPHOCYTES # (AUTO) 0.6 /CMM (0.8-4.8); MEAN CORPUSCULAR HGB CONC 33 g/dl (31.0-36.0); MEAN CORPUSCULAR VOLUME 94 fL (82-100); MONOCYTES # (AUTO) 0.4 /CMM (0.1-1.30); MONOCYTES % (AUTO) 3.7 % (2.0-12.0); NEUTROPHILS # (AUTO) 9.2 /CMM (1.8-8.9); NEUTROPHILS % (AUTO) 90.1 % (43.0-81.0); PLATELET COUNT (AUTO) 287 /CMM (150-450); RED BLOOD CELL COUNT(AUTO) 4.05 MIL/uL (4.0-5.2); WHITE BLOOD COUNT (AUTO) 10.2 K/uL (4.3-11.0)
[2020-10-29 06:05] LABS: ALANINE AMINOTRANSFERASE 51 U/L (12-78); ALBUMIN 2.8 g/dL (3.4-5.0); ALKALINE PHOSPHATASE 180 U/L (46-116); ASPARTATE AMINOTRANSFERASE 76 U/L (15-37); BILIRUBIN,DIRECT 0.3 mg/dL (0.0-0.2); BILIRUBIN,TOTAL 0.5 mg/dL (0.2-1.0); CALCIUM, SERUM 8.8 mg/dL (8.5-10.1); CARBON DIOXIDE 28 mmol/L (21-32); CHLORIDE 106 mmol/L (98-107); GLUCOSE 230 mg/dL (74-106); POTASSIUM 3.7 mmol/L (3.5-5.1); SODIUM SERUM 145 mmol/L (136-145); TOTAL PROTEIN, SERUM 6.9 g/dL (6.4-8.2); UREA NITROGEN, BLOOD 29 mg/dL (7-18)
[2020-10-29 06:10] LABS: ALANINE AMINOTRANSFERASE 52 U/L (12-78); ALBUMIN 2.8 g/dL (3.4-5.0); ALKALINE PHOSPHATASE 180 U/L (46-116); ASPARTATE AMINOTRANSFERASE 71 U/L (15-37); BILIRUBIN,TOTAL 0.5 mg/dL (0.2-1.0); CALCIUM, SERUM 8.5 mg/dL (8.5-10.1); CARBON DIOXIDE 27 mmol/L (21-32); CHLORIDE 106 mmol/L (98-107); GLUCOSE 229 mg/dL (74-106); MAGNESIUM 1.8 mg/dL (1.8-2.4); PHOSPHORUS 2.9 mg/dL (2.5-4.9); POTASSIUM 3.7 mmol/L (3.5-5.1); SODIUM SERUM 145 mmol/L (136-145); TOTAL PROTEIN, SERUM 6.9 g/dL (6.4-8.2); UREA NITROGEN, BLOOD 28 mg/dL (7-18)
[2020-10-29 06:15] LABS: ABG BASE EXCESS 3.5 mmol/L; ABG OXYGEN SATURATION 91.5 % (92.0-98.5); ABG PH 7.457 (7.350-7.450); ABG PO2 61.7 mmHg (75.0-100.0); AaDO2 611.3 mmHg; COHb 0.7 % (0.5-1.5); MetHb 0.3 % (0.0-1.5); O2Hb 90.6 % (94.0-97.0); SITE, ABG Right Radial; VENT MODE, BG AC 24 450 100% +10
--- NOTE | 2020-10-29 06:30 | NUR ---
STERILE PROCESS TECH NOTES PATIENT REMAINS ORALLY INTUBATED ON MECHANICAL VENTILATION, REMAINS ON FIO2 100% WITH PEEP +10 SEDATED ON DIPRIVAN. WILL ENDORSE THE PATIENT TO THE AM SHIFT NURSE FOR DIMITRIOS
--- NOTE | 2020-10-29 07:08 | NUR ---
RN NOTES RECEIVED PATIENT IN BED RESTING COMFORTABLY IN MODERATE HIGH BACK REST. INTUBATED, ON VENT WITH CURRENT SETTING OF AC 24, TV 450, FIO2 OF 100%, PEEP OF 10. TOLERATING CURRENT SETTING WITH NO SIGNS OF DISTRESS NOTED AT THIS TIME. IV ACCESS ON CORINNE AND RAC WITH PROPOFOL RUNNING @30. SAFETY MEASURES IN PLACE, WILL CONTINUE TO MONITOR.
[2020-10-29] MEDS: ASPIRIN EC 81 MG TABLET.DR PO SCH (08:28)
[2020-10-29] MEDS: ATORVASTATIN 40 MG TABLET PO SCH (08:28)
[2020-10-29] MEDS: DEXAMETHASONE SOD PHOSPHATE 10 MG/ML VIAL IV SCH (08:28)
[2020-10-29] MEDS: ENOXAPARIN SODIUM 80 MG/0.8 ML DISP.SYRIN SQ SCH ×2 (08:37→21:14)
[2020-10-29] MEDS: CEFTRIAXONE 1 G in IV D5W 50 ML IV SCH (13:50)
[2020-10-29] MEDS: AZITHROMYCIN 500 MG in IV D5W 250 ML IV SCH (15:04)
[2020-10-29] MEDS: REMDESIVIR (CHARGED) 100 MG in IV NS 0.9% 230 ML IV SCH (17:01)
--- NOTE | 2020-10-29 19:40 | NUR ---
USER EXPERIENCE DESIGNER RCD PT W/DX RESP FAIL, COVID POSITIVE; NSR ON MONITOR. SEDATED ON PROPOFOL @ 30 MCG/KG/MIN. INTUBATED 7.5 @ 20 W/VENT SETTINGS AC 24 450 90% +12. SKIN INTACT. CORINNE MIDLINE INTACT W/GOOD BLOOD RETURN.
--- NOTE | 2020-10-29 23:46 | NUR ---
RT pt received on mechanical vent with current settings. orally intubated with ett size 7.5, 20 cm. vent plugged in to red outlet. ett secure. ambu bag at [facility]. minimal [employer] suctioned via ett. no sob, no resp distress. will continue to monitor.
[2020-10-30] VITALS (51 sets, daily range): BP systolic 52–143; BP diastolic 24–72
[2020-10-30] MEDS: BLOOD SUGAR DIAGNOSTIC 1 EACH STRIP IN SCH ×6 (01:13→22:02)
[2020-10-30] MEDS: INSULIN REGULAR, HUMAN 100 UNIT/ML 3 ML VIAL SQ PRN ×5 (01:19→22:05)
[2020-10-30] MEDS: PROPOFOL 100 ML IV PRN ×6 (02:44→23:52)
[2020-10-30 04:36] LABS: BASOPHILS % (AUTO) 0.1 % (0.0-2.0); EOSINOPHILS % (AUTO) 1.6 % (0.0-6.0); HEMATOCRIT 37 % (33-45); HEMOGLOBIN 12.2 g/dL (11.5-14.8); LYMPHOCYTES # (AUTO) 0.6 /CMM (0.8-4.8); LYMPHOCYTES % (AUTO) 6.7 % (20.0-44.0); MEAN CORPUSCULAR HGB CONC 33 g/dl (31.0-36.0); MEAN CORPUSCULAR VOLUME 94 fL (82-100); MONOCYTES # (AUTO) 0.3 /CMM (0.1-1.30); MONOCYTES % (AUTO) 2.8 % (2.0-12.0); NEUTROPHILS # (AUTO) 8.4 /CMM (1.8-8.9); NEUTROPHILS % (AUTO) 88.8 % (43.0-81.0); PLATELET COUNT (AUTO) 270 /CMM (150-450); RED BLOOD CELL COUNT(AUTO) 3.98 MIL/uL (4.0-5.2); WHITE BLOOD COUNT (AUTO) 9.4 K/uL (4.3-11.0)
[2020-10-30 05:01] LABS: ALANINE AMINOTRANSFERASE 45 U/L (12-78); ALBUMIN 2.7 g/dL (3.4-5.0); ALKALINE PHOSPHATASE 162 U/L (46-116); ASPARTATE AMINOTRANSFERASE 64 U/L (15-37); BILIRUBIN,DIRECT 0.2 mg/dL (0.0-0.2); BILIRUBIN,TOTAL 0.4 mg/dL (0.2-1.0); CALCIUM, SERUM 8.6 mg/dL (8.5-10.1); CARBON DIOXIDE 34 mmol/L (21-32); CHLORIDE 108 mmol/L (98-107); CREATININE 0.9 mg/dL (0.6-1.3); GLUCOSE 104 mg/dL (74-106); POTASSIUM 3.4 mmol/L (3.5-5.1); SODIUM SERUM 147 mmol/L (136-145); TOTAL PROTEIN, SERUM 6.5 g/dL (6.4-8.2); UREA NITROGEN, BLOOD 30 mg/dL (7-18)
[2020-10-30 05:28] LABS: ABG BASE EXCESS 5.9 mmol/L; ABG OXYGEN SATURATION 88.3 % (92.0-98.5); ABG PCO2 44.3 mmHg (35.0-45.0); ABG PH 7.456 (7.350-7.450); ABG PO2 53.6 mmHg (75.0-100.0); AaDO2 542.7 mmHg; COHb 0.6 % (0.5-1.5); MetHb 0.1 % (0.0-1.5); O2Hb 87.7 % (94.0-97.0); SITE, ABG Left Radial; VENT MODE, BG AC 24 450 90% +12
[2020-10-30] MEDS: ATORVASTATIN 40 MG TABLET PO SCH (08:16)
[2020-10-30] MEDS: ASPIRIN EC 81 MG TABLET.DR PO SCH (08:17)
[2020-10-30] MEDS: DEXAMETHASONE SOD PHOSPHATE 10 MG/ML VIAL IV SCH (08:17)
[2020-10-30] MEDS: ENOXAPARIN SODIUM 80 MG/0.8 ML DISP.SYRIN SQ SCH ×2 (08:18→22:04)
[2020-10-30] MEDS: POTASSIUM CHLORIDE 20 MEQ TAB.PRT.SR PO SCH ×3 (09:28→12:15)
[2020-10-30 10:47] LABS: CHOLESTEROL 101 mg/dL (<200); HDL CHOLESTEROL 45 mg/dL (40-60); LDL 40 mg/dL (0-99); TRIGLYCERIDES 152 mg/dL (30-150)
[2020-10-30] MEDS: CEFTRIAXONE 1 G in IV D5W 50 ML IV SCH (13:12)
--- NOTE | 2020-10-30 18:00 | NUR ---
RN NOTES SPOKE TO FAMILY AND UPDATED REGARDING PATIENT STATUS.
[2020-10-30] MEDS: REMDESIVIR (CHARGED) 100 MG in IV NS 0.9% 230 ML IV SCH (18:14)
--- NOTE | 2020-10-30 19:10 | NUR ---
RN NOTES BP IS 75/46, CALLED PHARMACY 2X REGARDING LEVO, THEY SAID THEY ARE STILL MAKING IT AND WILL SEND IT UP [facility]. WILL F/U AND CONTINUE TO MONITOR.
[2020-10-30] MEDS: NOREPINEPHRINE 8 MG in IV NS 0.9% 242 ML IV PRN (19:50)
[2020-10-30] MEDS ORDERED: NOREPINEPHRINE 4 MG/4 ML AMPUL IV ONE (23:55)
[2020-10-31] VITALS (89 sets, daily range): BP systolic 46–146; BP diastolic 15–80
[2020-10-31] MEDS: NOREPINEPHRINE 8 MG in IV NS 0.9% 242 ML IV PRN ×5 (00:26→10:35)
[2020-10-31] MEDS: BLOOD SUGAR DIAGNOSTIC 1 EACH STRIP IN SCH ×6 (01:31→20:38)
[2020-10-31] MEDS: INSULIN REGULAR, HUMAN 100 UNIT/ML 3 ML VIAL SQ PRN ×6 (01:35→21:43)
[2020-10-31] MEDS: PROPOFOL 100 ML IV PRN ×4 (04:48→22:44)
[2020-10-31 05:12] LABS: BASOPHILS % (AUTO) 0.2 % (0.0-2.0); HEMATOCRIT 52 % (33-45); HEMOGLOBIN 15.3 g/dL (11.5-14.8); LYMPHOCYTES % (AUTO) 4.9 % (20.0-44.0); MEAN CORPUSCULAR HGB CONC 30 g/dl (31.0-36.0); MEAN CORPUSCULAR VOLUME 102 fL (82-100); MONOCYTES # (AUTO) 0.7 /CMM (0.1-1.30); MONOCYTES % (AUTO) 3.4 % (2.0-12.0); NEUTROPHILS # (AUTO) 17.9 /CMM (1.8-8.9); NEUTROPHILS % (AUTO) 91.5 % (43.0-81.0); PLATELET COUNT (AUTO) 437 /CMM (150-450); RED BLOOD CELL COUNT(AUTO) 5.04 MIL/uL (4.0-5.2); WHITE BLOOD COUNT (AUTO) 19.6 K/uL (4.3-11.0)
[2020-10-31 05:21] LABS: CALCIUM, SERUM 8.8 mg/dL (8.5-10.1); CARBON DIOXIDE 18 mmol/L (21-32); CHLORIDE 104 mmol/L (98-107); CREATININE 2.7 mg/dL (0.6-1.3); GLUCOSE 245 mg/dL (74-106); MAGNESIUM 2.5 mg/dL (1.8-2.4); PHOSPHORUS 5.7 mg/dL (2.5-4.9); POTASSIUM 5.3 mmol/L (3.5-5.1); SODIUM SERUM 142 mmol/L (136-145); UREA NITROGEN, BLOOD 56 mg/dL (7-18)
[2020-10-31 05:55] LABS: ABG BASE EXCESS -8.4 mmol/L; ABG OXYGEN SATURATION 97.3 % (92.0-98.5); ABG PCO2 42.5 mmHg (35.0-45.0); ABG PH 7.255 (7.350-7.450); ABG PO2 103.5 mmHg (75.0-100.0); AaDO2 422.3 mmHg; COHb 0.2 % (0.5-1.5); MetHb 0.4 % (0.0-1.5); O2Hb 96.7 % (94.0-97.0); PEEP,BG 14 cm H2O; SITE, ABG Right Radial
[2020-10-31] MEDS: ATORVASTATIN 40 MG TABLET PO SCH (08:48)
[2020-10-31] MEDS: DEXAMETHASONE SOD PHOSPHATE 10 MG/ML VIAL IV SCH (08:48)
[2020-10-31] MEDS: ENOXAPARIN SODIUM 80 MG/0.8 ML DISP.SYRIN SQ SCH ×2 (08:49→21:37)
[2020-10-31] MEDS: ASPIRIN EC 81 MG TABLET.DR PO SCH (08:49)
[2020-10-31] MEDS: IV NS 0.9% 1,000 ML IV PRN ×2 (09:33→19:47)
[2020-10-31] MEDS: PHENYLEPHRINE 50 MG in IV NS 0.9% 245 ML IV PRN ×4 (12:17→22:37)
[2020-10-31] MEDS: NOREPINEPHRINE 32 MG in IV NS 0.9% 218 ML IV PRN ×2 (12:24→20:20)
[2020-10-31] MEDS: CEFTRIAXONE 1 G in IV D5W 50 ML IV SCH (14:05)
--- NOTE | 2020-10-31 15:00 | NUR ---
RECEIVED REPORT FROM BRENT LOMAS FOR DIMITRIOS.
[2020-10-31] MEDS: VASOPRESSIN INJ 40 UNIT in IV NS 0.9% 38 ML IV PRN (18:01)
[2020-10-31] MEDS ORDERED: FLUCONAZOLE IN NS 100 MG in PREMIX 1 EA IV SCH ×2 (20:00)
[2020-10-31] MEDS ORDERED: VANCOMYCIN 500 MG in IV D5W 100 ML IV SCH (21:00)
[2020-10-31] MEDS ORDERED: MEROPENEM 500 MG in IV NS 0.9% 50 ML IV SCH (21:00)
[2020-11-01] VITALS: BP 92/50
[2020-11-01] MEDS: BLOOD SUGAR DIAGNOSTIC 1 EACH STRIP IN SCH (00:32)
[2020-11-01] MEDS: INSULIN REGULAR, HUMAN 100 UNIT/ML 3 ML VIAL SQ PRN (00:33)
[2020-11-01] MEDS: PHENYLEPHRINE 50 MG in IV NS 0.9% 245 ML IV PRN (02:14)
[2020-11-01 02:15] VITALS: BP 77/19
[2020-11-01] MEDS: NOREPINEPHRINE 32 MG in IV NS 0.9% 218 ML IV PRN (02:17)
[2020-11-01] MEDS: VASOPRESSIN INJ 40 UNIT in IV NS 0.9% 38 ML IV PRN (02:18)
[2020-11-01 02:30] VITALS: BP 119/19
[2020-11-01 02:45] VITALS: BP 62/20
[2020-11-01 03:00] VITALS: BP 118/19
[2020-11-01 03:15] VITALS: BP 111/16
--- NOTE | 2020-11-01 04:30 | NUR ---
PATIENT AT 0406 PRONOUNCED BY ED TERARESIAN, ASYSTOLE, NO BP, NO AUDIBLE HEART TONES, PULSES ABSENT, VENTILATOR TURNED OFF. NOTIFIED Abril WALSH, ADMITTING BRODERICK VALERIO, NURSING FINANCIAL RECORDING CLERK VINCENT CARRASCO, NO CODE CALLED PT IS DNR.
--- NOTE | 2020-11-01 04:35 | NUR ---
RN NOTES DOUBLE BAGGED THE PT PER INFECTION CONTROL PROTOCOL, BELONGING LIST CHECKED, TAGS AND LABELED APPLIED TO PT, SPOKE WITH DAUGHTER MAIRA, PER DAUGHTER THEY DON'T HAVE THE MORTUARY AT THIS TIME, CONSENT GIVEN BY DAUGHTER TO RELEASE THE BODY TO MORTUARY. TRANSFER BODY TO [facility] WITH 2 SECURITY PERSONNEL, BELONGINGS SENT WITH THE PT BODY
== END 2020-11-01 08:52 | disposition expired | DRG 871 ==
LOC: ER 11:49 → TRANSITION 13:15 → ICU 21:06
PROVIDERS: ADMIT Internal Medicine; ATTEND Nurse Practitioner Acute Care
PROC: 05H533Z Insertion of Infusion Device into Right Subclavian Vein, Percutaneous Approach (ICD-10-PCS; 2020-10-26)
PROC: B546ZZA Ultrasonography of Right Subclavian Vein, Guidance (ICD-10-PCS; 2020-10-26)
PROC: XW033E5 Introduction of Remdesivir Anti-infective into Peripheral Vein, Percutaneous Approach, New Technology Group 5 (ICD-10-PCS; 2020-10-26)
PROC: XW13325 Transfusion of Convalescent Plasma (Nonautologous) into Peripheral Vein, Percutaneous Approach, New Technology Group 5 (ICD-10-PCS; 2020-10-26)
PROC: XW033H5 Introduction of Tocilizumab into Peripheral Vein, Percutaneous Approach, New Technology Group 5 (ICD-10-PCS; 2020-10-26)
PROC: 5A1945Z Respiratory Ventilation, 24-96 Consecutive Hours (ICD-10-PCS; principal; 2020-10-28)
PROC: 0BH18EZ Insertion of Endotracheal Airway into Trachea, Via Natural or Artificial Opening Endoscopic (ICD-10-PCS; 2020-10-28)
DX: A41.89 Other specified sepsis (principal); U07.1 COVID-19; J12.89 Other viral pneumonia; J96.01 Acute respiratory failure with hypoxia; I21.4 Non-ST elevation (NSTEMI) myocardial infarction; N17.0 Acute kidney failure with tubular necrosis; E43 Unspecified severe protein-calorie malnutrition; E11.10 Type 2 diabetes mellitus with ketoacidosis without coma; E87.1 Hypo-osmolality and hyponatremia; E87.2 Acidosis; G93.40 Encephalopathy, unspecified; Z66 Do not resuscitate; E66.01 Morbid (severe) obesity due to excess calories; E78.5 Hyperlipidemia, unspecified; E83.42 Hypomagnesemia; E87.6 Hypokalemia; I10 Essential (primary) hypertension; I48.91 Unspecified atrial fibrillation; R74.01 Elevation of levels of liver transaminase levels; E88.09 Other disorders of plasma-protein metabolism, not elsewhere classified; Z68.34 Body mass index [BMI] 34.0-34.9, adult; N13.9 Obstructive and reflux uropathy, unspecified; R59.0 Localized enlarged lymph nodes; Z79.84 Long term (current) use of oral hypoglycemic drugs; R53.1 Weakness
CPT/HCPCS: 31720; 36415; 36600; 71045-TC; 76770-TC; 80048-TC; 80053-TC; 80061-TC; 80076-TC; 81001; 82550-TC; 82553; 82570-TC; 82728-TC; 82803-TC; 82962-TC; 83605-TC; 83615-TC; 83735-TC; 83880; 83970; 84100-TC; 84155; 84155-TC; 84165; 84300-TC; 84484-TC; 85025-TC; 85378-TC; 85610-TC; 85730-TC; 86140-TC; 86480; 86850-TC; 87040-TC; 87081-TC; 87086-TC; 93307-TC; 94002-TC; 94003-TC; 94760-TC; 94799-TC; A4216; A4217; A9563; G0378; J0456; J0696; J1100; J1450; J1650; J1815; J1940; J2185; J2370; J2405; J3262; J3370; J3475; J3490; J7030; J7040; J7050; J7060; P9017-BL; U0003